=== PATIENT | male | born 1995 | race Caucasian/White ===

== ENCOUNTER 2017-11-05 16:02 | Emergency (ER) | END 2017-11-05 17:41 | disposition home or self-care (01) ==

== ENCOUNTER 2017-12-23 16:28 | Emergency (ER) | END 2017-12-23 19:34 | disposition home or self-care (01) ==

== ENCOUNTER 2018-08-17 09:17 | Emergency (ER) | payer OTHER ==
[~2018-08-17] VITALS: Ht 188 cm; Wt 107.2 kg
[~2018-08-17 09:17] MED LIST: CIPR500T4 PO; FIORICET PO; IBUP-1542 PO
[2018-08-17 09:21] VITALS: BP 139/86; PULSE 85; RESP 19; Ht 188 cm; Wt 107.2 kg
[2018-08-17] MEDS ORDERED: IBUPROFEN 800 MG TAB PO ONE (10:00)
[2018-08-17] MEDS ORDERED: IBUP800T48 PO (10:55)
--- NOTE | 2018-08-17 14:31 | ERD ---
ER Documentation Chief Complaint Chief Complaint bilateral knee pain/injury HPI 2-year-old male presenting with bilateral knee pain. Patient had an injury to his left knee 4 years ago and he hyperextended it 2 days ago. He has had mild pain with movement. He took ibuprofen with mild relief. On his right knee he developed some pain after squatting and heard a pop. He has had chronic problems with his knee in the past and feels that his knee elicits pain with walking. Denies medical problems. NKDA. Surgical history denies. Social history denies ROS All systems reviewed and are negative except as per history of present illness. Medications Home Meds Active Scripts Ibuprofen* (Motrin*) 800 Mg Tab, 800 MG PO Q6, #30 TAB Prov:GAYATRI KRAMER PA-C 08/17/18 Acetamin/Butalbital/Caffeine* (Fioricet*) [id number] Tab, 1 TAB PO Q6H PRN for PAIN, #30 TAB Prov:ORTEGA CARTWRIGHT 12/23/17 Ibuprofen* (Motrin*) 600 Mg Tab, 600 MG PO Q6, #30 TAB Prov:ORETGA CARTWRIGHT 12/23/17 Ibuprofen* (Motrin*) 600 Mg Tab, 600 MG PO Q6, #30 TAB Prov:RADHA WALKER PA-C 11/05/17 Ciprofloxacin Hcl* (Ciprofloxacin Hcl*) 500 Mg Tablet, 500 MG PO BID for 7 Days, TAB Prov:RADHA WALKER PA-C 11/05/17 Allergies Allergies: Coded Allergies: No Known Allergy (Unverified , 11/05/17) PMhx/Soc History of Surgery: No (NO MEDICAL PROBLEMS) Hx Alcohol Use: Yes Hx Substance Use: No Hx Tobacco Use: No Smoking Status: Never smoker FmHx Family History: No diabetes, No coronary disease, No other Physical Exam Vitals Vital Signs Date Temp Pulse Resp B/P (MAP) Pulse Ox O2 O2 Flow FiO2 Time Delivery Rate 08/17/18 97.1 85 19 139/86 98 09:21 (103) Physical Exam GENERAL: The patient is well-appearing, well-nourished, in no acute distress CHEST: Clear to auscultation bilaterally. There are no rales, wheezes or rhonchi. HEART: Regular rate and rhythm. No murmurs, clicks, rubs or gallops. EXTREMITIES: Normal flexion and extension. No valgus or varus deformity. Mild pain with flexion and extension. NEUROLOGIC: Alert and oriented. Cranial nerves II through XII intact. Motor strength in all 4 extremities with 5 out of 5 strength. Sensation grossly intact. Normal speech and gait. SKIN: There is no apparent rash or petechiae. The skin is warm and dry. Results 24 hrs Current Medications Medications Dose Sig/Osbaldo Start Time Status Last (Trade) Ordered Route PRN Stop Time Admin Dose Reason Admin Ibuprofen 800 mg ONCE ONCE 08/17/18 DC 08/17/18 (Motrin) PO 10:00 10:31 08/17/18 10:01 Procedures/MDM DIAGNOSTIC IMAGING REPORT Patient: DEDRA LEDEZMA : 1995 Age: 22 Sex: M MR #: [id number] DOS: 08/17/18 0956 Ordering MD: THAIS KRAMER PA-C Location: [facility] Room/Bed: PROCEDURE: Bilateral knee x-ray CLINICAL INDICATION: Knee pain TECHNIQUE: AP, lateral and tunnel views of the bilateral knees were obtained. COMPARISON: 02/20/2013 FINDINGS: Right knee: There is normal mineralization. No acute fracture or dislocation is seen. There is no joint effusion. There are no significant degenerative changes. There is no significant soft tissue swelling. Left knee: There is normal mineralization. No acute fracture or dislocation is seen. There is no joint effusion. There are no significant degenerative changes. There is no significant soft tissue swelling. RPTAT: AA IMPRESSION: Normal x-ray of the bilateral knees. MDM: 22-year-old male presenting with pain. I have low suspicion for acute fracture dislocation. I have low suspicion for tendon or ligament injury. I have low suspicion for neuro deficit. Patient is recommended follow-up with orthopedist as he would benefit from an MRI. She is told symptoms change or worsen to return immediately to the ER. All questions answered at discharge Departure Diagnosis: Primary Impression: Knee pain Condition: Stable Patient Instructions: Knee Pain, Uncertain Cause Referrals: [facility] YOU HAVE RECEIVED A MEDICAL SCREENING EXAM AND THE RESULTS INDICATE THAT YOU DO NOT HAVE A CONDITION THAT REQUIRES URGENT TREATMENT IN THE EMERGENCY DEPARTMENT. FURTHER EVALUATION AND TREATMENT OF YOUR CONDITION CAN WAIT UNTIL YOU ARE SEEN IN YOUR DOCTORS OFFICE WITHIN THE NEXT 1-2 DAYS. IT IS YOUR RESPONSIBILITY TO MAKE AN APPOINTMENT FOR FOLOW-UP CARE. IF YOU HAVE A PRIMARY DOCTOR --you should call your primary doctor and schedule an appointment IF YOU DO NOT HAVE A PRIMARY DOCTOR YOU CAN CALL OUR PHYSICIAN REFERRAL HOTLINE AT IF YOU CAN NOT AFFORD TO SEE A PHYSICIAN YOU CAN CHOSE FROM THE FOLLOWING FORMERLY [facility] [address] [facility] [address] [facility] [place] [address] [facility] [address] [facility] [address] [facility] [address] [facility]. [facility]. [address] Additional Instructions: FOLLOW UP WITH YOUR PRIMARY CARE PHYSICIAN TOMORROW.Return to this facility if you are not improving as expected. GAYATRI KRAMER PA-C Aug 17, 2018 14:31
== END 2018-08-17 11:06 | disposition home or self-care (01) ==
LOC: FTE 09:17
DX: M25.561 Pain in right knee (principal); M25.562 Pain in left knee
CPT/HCPCS: 73562; Z7502; Z7610